=== PATIENT | female | born 1930 | race Caucasian/White ===

== ENCOUNTER → 2017-11-18 | Outpatient (REF) ==
[~2017-11-18] MED LIST: ASPIRIN E.C. 8181 MG PO; NITROSTAT0.4 MG SL; NITROSTAT0.4 MG/TAB SL; ZESTRIL 20MG TA20 MG PO; ZESTRIL20 MG PO; ZOCOR 40MG40 MG PO
== END ==
LOC: ZLAB.WCH 15:59
DX: Z01.89 Encounter for other specified special examinations (principal)

== ENCOUNTER → 2018-05-25 | Outpatient (REF) | LOC: COL.CARD 09:09 | DX: Z01.818 Encounter for other preprocedural examination (principal) ==